=== PATIENT | female | born 1995 | race Caucasian/White ===

== ENCOUNTER 2019-01-06 10:00 | Emergency (ER) | payer BC ==
[2019-01-06] MEDS: FLUORESCEIN STRIP BOTH EYES (10:35)
[2019-01-06] MEDS: TETRACAINE 0.5% 4 ML OPH BOTH EYES (10:36)
== END 2019-01-06 10:51 | disposition home or self-care (01) ==
LOC: FTE 10:00
DX: T59.91XA Toxic effect of unspecified gases, fumes and vapors, accidental (unintentional), initial encounter (principal)
CPT/HCPCS: 99283